=== PATIENT | male | born 1990 | race Caucasian/White ===

== ENCOUNTER 2018-01-30 19:42 | Emergency (ER) | payer OTHER ==
[2018-01-30] MEDS: PANTOPRAZOLE 40 MG INJ IV (20:29)
[2018-01-30] MEDS: SOD CHLORIDE 0.9% 1,000 ML IV ×2 (20:29→23:58)
[2018-01-30] MEDS: DIPHENHYDRAMINE 50 MG INJ IV (20:30)
[2018-01-30] MEDS: ONDANSETRON 4 MG INJ IV (20:30)
[2018-01-30] MEDS: morphine 4 MG/ML VIAL IV (20:30)
[2018-01-30 20:51] LABS: ADD MAN DIFF? NO
[2018-01-30 20:54] LABS: WHITE BLOOD COUNT 9.4 10^3/ul (4.8-10.8)
[2018-01-30 20:54] LABS: BASOPHIL # 0.1 10^3/ul (0.0-0.1); BASOPHILS % 0.9 % (0.0-2.0); EOSINOPHILS # 0.1 10^3/ul (0.0-0.5); EOSINOPHILS % 0.9 % (0.0-7.0); HEMATOCRIT 45.5 % (42.0-52.0); HEMOGLOBIN 15.8 g/dl (14.0-18.0); LYMPHOCYTES # 2.2 10^3/ul (0.8-2.9); LYMPHOCYTES % 23.4 % (15.0-51.0); MEAN CORPUSCULAR HEMOGLOBIN 29.7 pg (29.0-33.0); MEAN CORPUSCULAR HGB CONC 34.7 g/dl (32.0-37.0); MEAN CORPUSCULAR VOLUME 85.5 fl (82.0-101.0); MEAN PLATELET VOLUME 9.7 fl (7.4-10.4); MONOCYTE # 0.9 10^3/ul (0.3-0.9); MONOCYTES % 9.5 % (0.0-11.0); NEUTROPHIL # 6.1 10^3/ul (1.6-7.5); NEUTROPHILS % 65.1 % (39.0-77.0); PLATELET COUNT 326 10^3/UL (140-415); RED BLOOD COUNT 5.32 10^6/ul (4.70-6.10); RED CELL DISTRIBUTION WIDTH 13.2 % (11.5-14.5)
[2018-01-30 20:57] LABS: ADD UMIC NO; UR ASCORBIC ACID 40 mg/dL (NEGATIVE); UR BILIRUBIN (Dip) NEGATIVE (NEGATIVE); UR BLOOD (Dip) NEGATIVE (NEGATIVE); UR CLARITY CLEAR (CLEAR); UR COLOR YELLOW (YELLOW); UR GLUCOSE (Dip) NEGATIVE (NEGATIVE); UR KETONES (Dip) NEGATIVE (NEGATIVE); UR LEUKOCYTE ESTERASE (Dip) NEGATIVE Leu/ul (NEGATIVE); UR NITRITE (Dip) NEGATIVE (NEGATIVE); UR SPECIFIC GRAVITY (Dip) 1.017 (1.003-1.030); UR TOTAL PROTEIN (Dip) NEGATIVE (NEGATIVE); UR UROBILINOGEN (Dip) NEGATIVE (NEGATIVE)
[2018-01-30 21:11] LABS: ALANINE AMINOTRANSFERASE 74 IU/L (13-69); ALBUMIN 4.9 g/dl (3.3-4.9); ALBUMIN/GLOBULIN RATIO 1.28; ALKALINE PHOSPHATASE 80 IU/L (42-121); ANION GAP 17 (8-16); ASPARTATE AMINO TRANSFERASE 33 IU/L (15-46); BILIRUBIN,INDIRECT 0.3 mg/dl (0-1.1); BILIRUBIN,TOTAL 0.3 mg/dl (0.2-1.3); BLOOD UREA NITROGEN 9 mg/dl (7-20); CALCIUM 10.5 mg/dl (8.4-10.2); CARBON DIOXIDE 27 mmol/L (21-31); CHLORIDE 104 mmol/L (97-110); CREATININE 0.95 mg/dl (0.61-1.24); GLUCOSE 89 mg/dl (70-220); LIPASE 177 U/L (23-300); SODIUM 144 mmol/L (135-144); TOTAL PROTEIN 8.7 g/dl (6.1-8.1)
[2018-01-30] MEDS: KETOROLAC 30 MG INJ IV (22:25)
[2018-01-30] MEDS: DIAZEPAM 5 MG/ML SYG IV (23:18)
[2018-01-30] MEDS: LIDOCAINE/MYLANTA 40 ML BTL PO (23:57)
[2018-01-31] MEDS: SOD CHLORIDE 0.9% 100 ML (01:10)
[2018-01-31] MEDS: IOHEXOL 300MG/ML 150 ML BTL (01:10)
[2018-01-31] MEDS: DIAZEPAM 5 MG TAB PO (03:04)
== END 2018-01-31 03:10 | disposition home or self-care (01) ==
LOC: FTE 01-31 03:10
DX: N20.0 Calculus of kidney (principal)
CPT/HCPCS: 36415; 71275; 74176; 80053; 81003; 83690; 85025; 93005; 96374; 96375; 99285-25